=== PATIENT | male | born 1995 | race Caucasian/White ===

== ENCOUNTER 2025-07-23 09:55 | Outpatient (AMB) | payer BC, SELFPAY ==
--- NOTE | 2025-07-23 09:56 | A.OFFPC_ITS ---
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 albuterol sulfate 90 mcg/actuation 2 puffs inhalation Q6H PRN Tobacco use date assessed: 07/23/25 Dental Screening Dental Screen Date: 07/23/25 Did you have a dental visit in the last 12 months?: Yes Did you have a dental problem in the last 6 months where you did not have access to dental care?: No Was dental information given to patient?: Patient has dentist HPI HPI Comments History of Present Illness Details 29 y/o M with asthma, fhx diabetes (dad, 1/2 sister w/ Type 1) s/p wisdom teeth extraction Social: to Lashanda (also my patient), 1 cat; works at [employer] Fhx: as below Health Maintenance Flu declined 07/23/25 Tdap 07/23/25 Specialists None History of Present Illness The patient is a 29 year old individual presenting to establish care as a new patient and for asthma management & for CPE No records Asthma: - The patient has a history of asthma si nce childhood. - Symptoms are described as mild and occ ur about 2 or 3 days a week. - The patient uses an albuterol inhaler as needed for symptoms, which provides immediate relief. - The patient reports experiencing troub le breathing after sneezing, which sugg ests an allergic component to the asthma. Allergic Rhinitis: - The patient has been taking antihistam sammie like Zyrtec on and off since childhood for allergies. - The patient experiences episodes of sn eezing that trigger asthma symptoms. Health Maintenance: - The patient is establishing care and h as not been to a doctor's office in a long time. - The patient is due for a Tdap immuniza tion, having last received it a very long time ago. - The patient has not had a recent flu s hot. Declined - The patient declined blood work to [facility] for diabetes. Past Medical History - Asthma since childhood - Allergic rhinitis Past Surgical History - History of dental extractions Family History - Father: Type 2 diabetes - Maternal half-sister: Type 1 diabetes - Paternal grandmother: Breast cancer Social History - Marital status: - Living situation: Lives with and one cat. - Employment: Works at [employer]. Health Maintenance - A Tdap vaccine will be administered in the office today. - Provided instructions and information on how to sign up for the patient portal. - The patient declined a flu shot and di abetes screening at this visit. Review of Systems - Respiratory: Reports mild intermittent asthma symptoms approximately two to three times per week. - Reports dyspnea after episodes of snee zing. - Gastrointestinal: Reports normal bowel function. - Genitourinary: Reports normal urinary function. - Ophthalmologic: Denies vision problems or the use of glasses. - Integumentary: Denies any rashes, sore s, or open areas on the feet. - Musculoskeletal: Denies hip or back pa in. Physical Exam General: Well developed, well nourished, in no acute distress. Appears stated age. Head: Normocephalic, atraumatic. Eyes: Pupils are equal, round and reactive to light and accommodation. Conjunctivae are clear. Scleras nonicteric bilat. Vision grossly normal. Ears: TMs clear AU, EACS WNL Nose: Patent, without discharge. Neck: No carotid bruit bilat. Supple, no adenopathy or thyromegaly. Breast: Edu on SBE Lungs: Clear to auscultation bilaterally. No rales, rhonchi or wheeze noted. Good air flow in all abdul. Heart: Regular rate and rhythm. No murmurs, click, rubs or gallops are noted. Abdomen: Bowel sounds present in all quadrants. The abdomen is soft, nontender, with no masses or organomegaly noted. No hernias are noted. : Deferred. Reviewed FIDEL & recommendations Pulses: Peripheral pulses are equal and palpable bilaterally. Extremities: No clubbing, cyanosis nor edema is noted. Neurologic: Gait and station normal. Cranial Nerves 2-12 intact. Motor strength grossly symmetrical and intact. No sensory loss. Balance normal. Skin: No rashes, ulcers, or lesions noted. Turgor is good. Skin color is good. Hair and nails are without abnormalities. Psych: Normal eye contact, affect and mood appropriate, and normal interactions. Patient is alert and appropriate to context. Medical Decision Making The patient is a 29-year-old individual presenting for a new patient visit to establish care. The primary clinical issue is mild intermittent asthma, which appears well-controlled with an albuterol rescue inhaler. The patient's report of dyspnea after sneezing suggests an allergic component to the asthma, for which daily use of an oral antihistamine is a reasonable first-line approach. A refill of the albuterol inhaler will be provided. A daily controller inhaler is not indicated at this time but can be considered if symptoms persist or worsen despite the addition of an antihistamine. For health maintenance, a Tdap vaccine is recommended and was administered, as the patient was due and has asthma, which increases risks from pertussis. The patient has a family history of diabetes but declined screening today. Instructions were provided for patient portal enrollment to facilitate communication and access to health information. Plan 1. Mild Intermittent Asthma - A prescription for an albuterol inhale r will be sent to the pharmacy for as- needed use. - Recommended initiating a daily oral an tihistamine, such as wagz-nih-tzkidbl Zyrtec, to address the allergic component of the asthma. - A daily controller inhaler can be cons idered in the future if asthma symptoms persist or worsen despite this intervention. - Tdap admin today; declined Flu - RTO 6 mo for asthma re-eval. sooner pr n and CPE in 1 year. Patient Instructions - A prescription for an albuterol inhale r will be sent to the pharmacy at [facility] in [place]. - Begin taking an cdxo-clr-dkwnqbp daily antihistamine, such as Zyrtec (or a generic version), to help with allergy symptoms that can trigger your asthma. - If your asthma symptoms continue or ge t worse, please let us know as we may need to discuss a daily inhaler. - You will receive a Tdap (tetanus, diph theria, whooping cough) vaccine in the office today. This vaccine is effective for 10 years. - Please stop at the front line leader to get a printout with information on how to sign up for our patient portal. The activation link is only valid for 24 hours. Consent The importance of the Tdap vaccine was discussed with the patient, particularly the pertussis component, which is important for individuals with asthma. The patient was informed that the vaccine is considered a wellness vaccine and should be covered by insurance. The patient gave verbal consent to receive the Tdap vaccine during today's visit. Patient was informed and verbally consented to the use of an ambient scribe for clinic note documentation during this visit. An additional 15 minutes was spent addressing the problem(s) noted at todays visit. This includes time spent before the visit reviewing the chart, time spent during the visit, and time spent after the visit on documentation reviewing laboratory results, diagnostic imaging, medications, performing a medically necessary evaluation, counseling on diagnoses, care coordination, ordering appropriate tests, ordering appropriate medications, review of tests performed by other providers, reporting test results with the patient, communication with other healthcare providers. [facility] Medical History (Updated 07/23/25 @ 10:[address] 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 1. Little interest or pleasure in doing things: not at all 2. Feeling down, depressed, or hopeless: not at all 3. Trouble falling or staying asleep, or sleeping too much: not at all 4. Feeling tired or having little energy: several days 5. Poor appetite or overeating: not at all 6. Feeling bad about yourself - or that you are a failure or have let yourself or your family down: not at all 7. Trouble concentrating on things, such as reading the newspaper or watching television: not at all 8. Moving or speaking so slowly that other people could have noticed. Or the opposite - being so fidgety or restless that you have been moving around a lot more than usual: not at all 9. Thoughts that you would be better off or of hurting yourself in some way: not at all Total score: 1 Depression Screening Interpretation: Negative Depression Screening Done: Yes 25546 - PHQ-9 Billing: Yes Source: Developed by Drs. Gael Moore, Domenica Gong, Phil Avila and colleagues, with an educational faviola from [employer]. Thrive Questionnaire Date Thrive assessed: 07/23/25 I am a: Patient What is your living situation today?: I have a steady place to live Within the past 12 months, did the food you bought not last and you didn't have the money to get more?: Never true Within the past 12 months, did you worry whether your food would run out before you got money to buy more?: Never true Do you have trouble paying for medicines?: No Do you have trouble getting transportation to medical appointments?: No Do you have trouble paying your heating and electricity bill?: No Do you have trouble taking care of your child, family member or friend?: No Do you have trouble with day-to-day activities such as bathing, preparing meals, shopping, managing finances, etc.?: No Are you currently unemployed and looking for a job?: No Are you interested in more education?: I choose not to answer this question Please select the resources that you would like help with: None Currently or been in a relationship where the following occur: No concerns reported THRIVE Score: 0 AUDIT C Alcohol Use Questionnaire (AUDIT-C) 1. How often do you have a drink containing alcohol?: Monthly or less 2. How many drinks containing alcohol do you have on a typical day when you are drinking?: 1 or 2 3. How often do you have six or more drinks on one occasion?: Never Total Score: 1 Score Reviewed/Action Taken: Yes LEE-7 AMB Questionnaire LEE-7 Date LEE - 7 assessed: 07/23/25 Feeling nervous, anxious, or on edge: 0 = Not at all Not being able to stop or control worryin = Not at all Worrying too much about different things: 0 = Not at all Trouble relaxin = Not at all Being so restless that it is hard to sit still: 0 = Not at all Becoming easily annoyed or irritable: 0 = Not at all Feeling afraid as if something awful might happen: 0 = Not at all Total LEE-7 score (0-4 normal; 5-9 mild; 10-14 moderate; 15-21 severe): 0 Source: Developed by Drs. Gael Moore, Domenica Gong, Phil Avila and colleagues, with an educational faviola from [employer]. LEE-7 Assessment Billing LEE-7 Assessment Tool: LEE-7 Assessment 50741 ACT Questionnaire In the past 4 weeks, how much of the time did your asthma keep you from getting as much done at work, school or at home?: A little of the time During the past 4 weeks, how often have you had shortness of breath?: 1-2 times a week During the past 4 weeks, how often did your asthma symptoms wake you up at night or earlier than usual in the morning?: Not at all During the past 4 weeks, how often have you had to use your rescue inhaler or nebulizer medication?: 2-3 times a week How would you rate your asthma control during the past 4 weeks?: Somewhat controlled ACT Interpretation: Positive ACT Branch: Follow up visit scheduled Score: 19 Physical exam (Primary Care) Vital Signs: Last Vital Signs Temp 98.1 F 07/23/25 10:05 Pulse 73 07/23/25 10:05 Resp 16 07/23/25 10:05 BP 126/76 07/23/25 10:05 Pulse Ox 99 07/23/25 10:05 Oxygen Delivery Method Room Air 07/23/25 10:05 BMI result Body Mass Index 28.0 Tobacco/Smoking Status: Tobacco use Status Tobacco use date assessed 07/23/25 07/23/25 10:08 Patient Tobacco Use Status Never used Tobacco 07/23/25 10:08 e-Cigarette/Vaping Use Never Used 07/23/25 10:08 PHQ-9: PHQ-9 Score PHQ-9: Total score 1 07/23/25 10:15 Depression Screening Interpretation: Negative Thrive Assessment: Date of Thrive Assessment Date Thrive assessed 07/23/25 07/23/25 09:59 Currently or been in a relationship where the following occur: No concerns reported Coding Level of Care Code New Pt Level 2 (43893) New Pt Prev Care 18-39yr(92163 Diagnoses Encounter to establish care with new provider Z76.89 Influenza vaccination declined Z28.21 Need for Tdap vaccination Z23 Mild intermittent asthma in adult without complication J45.20 Family history of diabetes mellitus (DM) Z83.3 Encounter for general adult medical examination without abnormal findings Z00.00 Additional Codes LEE-7 Assessment Billing - LEE-7 Assessment Tool: LEE-7 Assessment 49496 ([id number]) PHQ-9 - 79192 - PHQ-9 Billing: Yes ([id number]) Asthma Control Questionnaire - ACT Interpretation: Positive ([id number]) Assessment & Plan Assessment & Plan (1) Encounter to establish care with new provider: Code(s): Z76.89 - Persons encountering health services in other specified circumstances Category: Medical (2) Influenza vaccination declined: Onset Date: ~07/23/25 Code(s): Z28.21 - Immunization not carried out because of patient refusal Category: Medical (3) Need for Tdap vaccination: Onset Date: ~07/23/25 Code(s): Z23 - Encounter for immunization Category: Medical (4) Mild intermittent asthma in adult without complication: Code(s): J45.20 - Mild intermittent asthma, uncomplicated Category: Medical (5) Family history of diabetes mellitus (DM): Code(s): Z83.3 - Family history of diabetes mellitus Category: Medical (6) Encounter for general adult medical examination without abnormal findings: Onset Date: ~07/23/25 Code(s): Z00.00 - Encounter for general adult medical examination without abnormal findings Category: Medical Plan , Medications: New albuterol sulfate 90 mcg/actuation 2 puffs inhalation Q6H PRN 6.7 grams 1RF dyspnea Patient Instructions: Walk-In Care (Urgent Care): We Make it Easy Walk-in for urgent medical issues such as: ? Seasonal Allergies ? Insect Bites ? Cough ? Diarrhea ? Acute Asthma Attacks ? Back, Knee or Joint Pain ? Ear Infection ? Fever without a Rash ? Headaches ? Nausea ? [place] [facility], Rash or Skin Irritation ? Sore Throat ? Sports Physicals ? Vomiting Most insurances are accepted. Patients do not need to be part of the [facility] to seek care at the walk-in clinic. Locations [address] [place] [address] [place] Open Tuesday through Tuesday 8am-5pm *Hours may vary due to staffing availability. To confirm Walk-In Care hours please call. [address] [facility] , [place] [address] ? [phone] [facility] in [place] provides services to ages 18 and over. Open Tuesday-Tuesday: 7 a.m. to 5 p.m. and Tuesday: 9 a.m. to 3 p.m.* *Hours may vary due to staffing availability. To confirm Walk-In Care hours in [place], please call [phone]. [address] [place] [id number] ? [phone] [facility] in [place] provides services to ages 12 and over. Open Tuesday-Tuesday: 8 a.m. to 5 p.m. Hours may vary due to staffing availability. To confirm Walk-In Care hours in [place], please call [phone]. LABORATORY SERVICES: [facility] ? Primary Location [address] [place] [address] Tuesday through Tuesday 6:00 AM ? 5:00 PM Tuesday 7:00 AM ? 11:00 AM* [phone] The [facility] is centrally located near the front entrance of the [facility] for easy outpatient access. Convenient parking is provided for outpatients. *Hours may vary due to staffing availability. To confirm Laboratory hours for any location, please call [phone]. Offsite Location For your convenience, we offer offsite laboratory draw stations at the following locations: [address] [place] [address] ? [address], [address] Tuesday through Tuesday 7:30 AM ? 1:00 PM* [phone] *Hours may vary due to staffing availability. To confirm Laboratory hours for any location, please call [phone]. [place] ? [address] Tuesday through Tuesday 6:00 AM ? 3:30 PM* Tuesday 6:30 AM ? 3 PM* [phone] *Hours may vary due to staffing availability. To confirm Laboratory hours for any location, please call [phone]. [address] [facility] Tuesday through Tuesday 7:30 AM ? 4:00 PM* [phone] *Hours may vary due to staffing availability. To confirm Laboratory hours for any location, please call [phone]. [address] [facility] Tuesday through 9:00 AM ? 4:00 PM* *Hours may vary due to staffing availability. To confirm Laboratory hours for any location, please call [phone]. Appointments are not necessary. Walk-ins are welcome. Like all the departments throughout the [facility], our Lab undergoes frequent reviews to ensure the quality and accuracy of test results, and our staff takes special pride in its status as a nationally accredited facility. Patient Portal: [facility] ONE PATIENT. ONE RECORD. BETTER CARE. [facility] has a fully integrated, cutting- edge mobile electronic health information system that has revolutionized the way we care for our patients and manage our organization. This system improves communication and coordination enabling us to provide safe, higher-quality care, and an overall positive experience for staff and patients. Our first priority, as always, is to deliver the highest quality care possible. The system is running in the background supporting that priority. This portal is for all [facility] services and practices. If you are experiencing any technical difficulties with enrolling or logging into the Patient Portal please complete the [facility] Patient Portal Technical Support Form. [facility] now offers a new secure on-line interactive tool for patients to review their health information ? ?Patient Portal. This interactive web portal will enable patients and their families to take an active role in their care by providing easy, secure access to their health information via the internet. The Patient Portal provides patients with instant access to their health information, including laboratory results, medications, allergies, demographic information, visit history, and more. In addition to managing their own care, parents and health care proxies with authorized consent will appreciate the ability to access the records of those individuals for whom they provide care. Please note: if you wish to gain access (Proxy) to another patient?s portal, you will be required to come to the Medical Records Department in person at [facility]. Both the patient giving proxy access and the proxy will need to provide photo identification and complete the appropriate authorization. The Patient Portal also allows track their appointments online. The [facility] Patient Portal also saves patients time by allowing them to submit updates to their demographic and contact information prior to their visits. Portal email notifications will also alert patients to any new activity on their portal, such as test results and new appointments. In order to initially enroll in the [facility] Patient Portal, you will need to enter some required information including the following: * your [facility] Medical Record number * your personal home email address * name * date of Please note: In order to enroll in the [facility] Patient Portal, we need to have your email address on file in your electronic medical record. ?The email address needs to be specific for one person (yourself) in order for your Portal enrollment to be successful. ?You can update your email address in person with our Registration staff when you are registering for a hospital visit. ?Otherwise, you will need to come to the Health Information Management (Medical Records) Department at [facility]. ?We are open from Tuesday ? Tuesday from 7:30 a.m. ? 4:30 p.m. ?You will be required to present a photo id. Once you have successfully enrolled in the Patient Portal, you will receive a one-time user id and password for the Portal, sent to your email address. ?This will allow you to log into the Patient Portal within 99 hrs and reset your own logon id and password, and define personal security questions. ?Once your permanent login and password have been set, you can log into the [facility] Patient Portal at any time via the blue button above or from the Portal Logon button on any page of the [facility] website. [facility] and [facility] encourage all of our patients to enroll in Patient Portal as it presents a valuable opportunity for patients and their families to actively participate in their care and stay healthy Welcome to [facility]. ?We look forward to working with you. Health screenings for men You should visit your health care provider regularly, even if you feel healthy. The purpose of these visits is to: Screen for medical issues Assess your risk for future medical problems Encourage a healthy lifestyle Update vaccinations and other preventive care services Help you get to know your provider in case of an illness Information Even if you feel fine, you should still see your provider for regular checkups. These visits can help you avoid problems in the future. For example, the only way to find out if you have high blood pressure is to have it checked regularly. High blood sugar and high cholesterol level also may not have any symptoms in the early stages. Simple blood tests can check for these conditions. There are specific times when you should see your provider or receive specific health screenings. The [place] Preventive Services Task Force publishes a list of recommended screenings. Below are screening guidelines for men ages 40 to 64. BLOOD PRESSURE SCREENING Have your blood pressure checked at least once every year. Watch for blood pressure screenings in your area. Ask your provider if you can stop in to have your blood pressure checked. Ask your provider if you need your blood pressure checked more often if: You have diabetes, heart disease, kidney problems, or are overweight or have certain other health conditions You have a first-degree relative with high blood pressure You are Black Your blood pressure top number is from 120 to 129 mm Hg, or the bottom number is from 70 to 79 mm Hg If the top number is 130 mm Hg or greater or the bottom number is 80 mm Hg or greater, this is considered stage 1 hypertension. Schedule an appointment with your provider to learn how you can lower your blood pressure. Effects of age on blood pressure CHOLESTEROL SCREENING Cholesterol screening should begin at age 35 for men with no known risk factors for coronary heart disease. Repeat cholesterol screening should take place: Every 5 years for men with normal cholesterol levels More often if changes occur in lifestyle (including weight gain and diet) More often if you have diabetes, heart disease, kidney problems, or certain other conditions COLORECTAL CANCER SCREENING If you are under age 45, talk to your provider about getting screened. You may need to be screened if you have a strong family history of colon cancer or polyps. Screening may also be considered if you have risk factors such as a history of inflammatory bowel disease or polyps. If you are age 45 to 75, you should be screened for colorectal cancer. There are several screening tests available: A stool-based fecal occult blood (gFOBT) or fecal immunochemical test (FIT) every year A stool sDNA test every 1 to 3 years Flexible sigmoidoscopy every 5 years or every 10 years with stool testing FIT done every year CT colonography (virtual colonoscopy) every 5 years Colonoscopy every 10 years You may need a colonoscopy more often if you have risk factors for colorectal cancer, such as: Ulcerative colitis A personal or family history of colorectal cancer A history of growths in your colon called adenomatous polyps DENTAL EXAM Go to the dentist once or twice every year for an exam and cleaning. Your dentist will evaluate if you have a need for more frequent visits. DIABETES SCREENING All adults who do not have risk factors for diabetes should be screened starting at age 35 and repeated every 3 years. If you have other risk factors for diabetes, such as a first degree relative with diabetes, overweight or obesity, high blood pressure, prediabetes, or a history of heart disease, you may be tested more often. If you are overweight and have other risk factors, such as high blood pressure and are planning to become , screening is recommended. EYE EXAM Have an eye exam every 2 to 4 years ages 40 to 54 and every 1 to 3 years ages 55 to 64. Your provider may recommend more frequent eye exams if you have vision problems or glaucoma risk. Have an eye exam that includes an examination of your retina (back of your eye) at least every year if you have diabetes. IMMUNIZATIONS Commonly needed vaccines include: Flu shot: get one every year COVID-19 vaccine: ask your provider what is best for you Tetanus-diphtheria and acellular pertussis (Tdap) vaccine: have as one of your tetanus-diphtheria vaccines if you did not receive it as an adolescent Tetanus-diphtheria: have a booster (or Tdap) every 10 years Varicella vaccine: receive 2 doses if you never had chickenpox or the varicella vaccine and were born in 1979 or after Hepatitis B vaccine: receive 2, 3, or 4 doses, depending on your exact circumstances, if you did not receive these as a child or adolescent, until age 59 Shingles (herpes zoster) vaccine: at or after age 50 Ask your provider if you should receive other immunizations, especially if you have certain medical conditions, such as diabetes or are at increased risk for some diseases such as pneumonia. INFECTIOUS DISEASE SCREENING Screening for hepatitis C: all adults ages 18 to 79 should get a one-time test for hepatitis C. Screening for human immunodeficiency virus (HIV): all people ages 15 to 65 should get a one-time test for HIV. Depending on your lifestyle and medical history, you may need to be screened for infections such as syphilis, chlamydia, and other infections. LUNG CANCER SCREENING You should have an annual screening for lung cancer with low-dose computed tomography (LDCT) if: You are age 50 to 80 years AND You have a 20 pack-year smoking history AND You currently smoke or have quit within the past 15 years OSTEOPOROSIS SCREENING If you are age 50 to 64 and have risk factors for osteoporosis, you should discuss screening with your provider. Risk factors can include long-term steroid use, low body weight, smoking, heavy alcohol use, having a fracture after age 50, or a family history of hip fracture or osteoporosis. Osteoporosis PHYSICAL EXAM All adults should visit their provider from time to time, even if they are healthy. The purpose of these visits is to: Screen for diseases Assess risk of future medical problems Encourage a healthy lifestyle Update vaccinations and other preventive care services Maintain a relationship with a provider in case of an illness Your height, weight, and body mass index (BMI) should be checked at every exam. During your exam, your provider may ask you about: Depression and anxiety Diet and exercise Alcohol and tobacco use Safety, such as use of seat belts and smoke detectors Your medicines and risk for interactions PROSTATE CANCER SCREENING If you're 55 through 69 years old, before having the test, talk to your provider about the pros and cons of having a PSA test. Ask about: Whether screening decreases your chance of dying from prostate cancer. Whether there is any harm from prostate cancer screening, such as side effects from testing or overtreatment of cancer when discovered. Whether you have a higher risk of prostate cancer than others. If you are age 55 or younger, screening is not generally recommended. You should talk with your provider about if you have a higher risk for prostate cancer. Risk factors include: Having a family history of prostate cancer (especially a brother or father) Being If you choose to be tested, the PSA blood test is repeated over time (yearly or less often), though the best frequency is not known. Prostate examinations are no longer routinely done on men with no symptoms. Prostate cancer SKIN EXAM Your provider may check your skin for signs of skin cancer, especially if you're at high risk. People at high risk include those who have had skin cancer before, have close relatives with skin cancer, or have a weakened immune system. TESTICULAR EXAM The [place] Preventive Services Task Force (USPSTF) now recommends against performing testicular self-exams. Doing testicular self-exams has been shown to have little to no benefit.
[2025-07-23 10:05] VITALS: BP 126/76; PULSE 73; RESP 16; TEMP 36.7; O2SAT 99; BMI 28.0
--- OUTSIDE RECORDS SUMMARY | 2025-07-23 11:05 | XMS_ITS | Data Portability ---
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 Declines referral for allergy evaluation. No symptoms of asthma at present. phelmuth Not available 12/05/2014 13:53:47 Plan of Treatment Reminders Order Date Submit Date Provider Last Modified By Organization Details Last Modified Time Details Appointments None record ed. Lab CMP, serum or plasma 2018 019 [id number] [facility], [address], [address] , [place], [address], 0 11:27:07 CBC w/ auto diff 2018 019 [id number] [facility], [address], [address], [place], [address], 0 11:27:07 vitami n D, 25-hyd arian, total, serum 2018 019 [id number] [facility], [address], [address] , [place], [address], 0 11:27:08 lipid panel, serum 2018 019 [id number] [facility], [address], [address], [place], [address], 0 11:27:08 TSH, serum or plasma 2018 019 [id number] [facility], [address], [address], [place], [address], 0 11:27:08 lipid panel, serum 2014 015 [email or web address] Not available 5 13:32:19 Referral sleep medici ne referr gus ramos sed apnea 2018 019 [facility], [address] [place], [address], 9 09:52:40 nutrit ionist /dieti kam referr al 2014 015 phelmuth Not available 5 18:01:33 Procedures None record ed. Surgeries None record ed. Imaging None record ed. Medication Orders Patano l 0.1 % eye drops 2014 015 [facility] [address], [address] [place], [address], 9 14:27:23 cetiri zine 10 mg tablet 2014 015 [facility] [address], [address] [place], [address], 9 14:31:20 Patient Targets Encounter Date Encounter Id Patient Goals Patient Target Last Modified By Organization Details Last Modified Time 11/23/2018 [id number] [facility] goal of Excess Body Weight Loss % 5 Not available Not available Not available 11/23/2018 [id number] Pt advised and agrees to work on self-monitoring behaviors; begin an appropriate diet for weight loss (such as a low carbohydrate diet), to do moderate exercise (such as walking) for approximately 150 minutes per week; and to identify desirable and timely rewards that will reinforce achievement of specific weight loss goals. pmadden Not available 11/23/2018 15:36:59 Patient Instructions Encounter Date Encounter Id Patient Instructions Last Modified By Organization Details Last Modified Time 12/05/2014 [id number] allergies: [facility] 12/08/2014 18:01:33 managing your allergies: care instructions phelmuth Not available 12/08/2014 18:01:33 When You Want to Lose Weight: [facility] available 12/08/2014 18:01:33 Nutrition Referral and Weight Management Follow-up Information ckrym Not available 12/11/2014 09:21:30 11/23/2018 [id number] psoriasis: care instructions pmadden Not available 11/23/2018 15:24:01 When You Want to Lose Weight: [facility] Not available 11/23/2018 15:24:01 Nutrition Referral and Weight Management [facility] Not available 11/23/2018 15:24:01 Medications (OTC , herbal therapies, supplements) reviewed and reconciled with patient and or caregiver, including potential side effects, drug interactions, instructions, and the consequences of not taking medication. Reviewed potential barriers to medication adherence, such as side effects from medication or cost of medication. [facility] Not available 11/23/2018 15:36:33 01/10/2019 [id number] snoring: [facility] Not available 01/10/2019 16:22:14 sleep apnea: car e instructions [facility] Not available 01/10/2019 16:22:14 Follow up if no improvement or if symptoms worsen. [facility] Not available 01/10/2019 16:22:52 Reason for Referral Vineyardist/dietitian Refer ral for Body mass index 25-29 - overweight Referring Physician: Gustavo Parks, Internal Medicine, Encounter Date: 12/05/2014 Sleep Medicine Referral for Snoring snoring and witnessed apnea Referring Physician: Jeff Kamara, Internal Medicine, Encounter Date: 01/10/2019 Results Created Date Observation Date Name Description Value Unit Range Abnormal Flag Note LastModifiedBy Organization Detail LastModifiedTime 04/10/20 19 04/06/2019 sleep study , diagn ostic * No observ ation record ed. [facility] [address] [place], [address], 04/10/2019 21:41:46 Result Notes None recorded. Problems Name Problem SNOMED Code Status Onset Date Resolution Date Notes Provider Name and Address Organization Details Recorded Time Body mass index 25-29 - overweig ht 784443620 Active Gustavo Parks MD [address], [place], [address] , [facility] 5 18:01:33 Allergic rhinitis 54065220 Active Gustavo Parks MD [address], [place], [address] , [facility] 5 18:01:33 Vernal conjunct ivitis 902546480 Completed 11/23/2018 Jeff Kamara PA-C [address] [facility] [address], [place], [address] , [facility] 9 15:08:58 Hyperlip idemia 36044718 Completed 11/23/2018 Jeff Kamara PA-C [address] [facility] [address], [place], [address] , [facility] 9 15:09:35 Adult health examinat ion Completed 201204/01/2014 RECORDED 07/11/20 13 9:55AM BY EMELINA MURPHY MA, ANNOTATI ON/ADDEN DUM Not Available [facility] 4 05:24:44 Anemia 523823625 Completed 201211/23/2018 Jeff Kamara PA-C [address] [facility] [address], [place], [address] , [facility] 9 15:09:40 Adult health examinat ion Completed 201203/05/2014 RECORDED 07/11/20 13 9:55AM BY EMELINA MURPHY MA, ANNOTATI ON/ADDEN DUM Not Available [facility] 4 14:07:27 Exercise -induced asthma 81350333 Active 2012 Kristine tracey, [facility] 9 14:27:39 Immuniza tion refused Completed 201211/23/2018 RECORDED 07/11/20 13 9:55AM BY EMELINA MURPHY MA, OFFICE VISIT Kristine tracey, [facility] 9 14:27:35 Patient status finding [id number] Completed 201211/23/2018 RECORDED 07/11/20 13 9:57AM BY EMELINA MURPHY MA, OFFICE VISIT Kristine tracey, [facility] 9 14:27:29 Partial thicknes s burn of hand 51038339 Completed 201211/23/2018 Jeff Kamara PA-C [address] [facility] [address], [facility] [place], [address] , [facility] 9 15:08:54 Overweig 800346931 Active 2018 Adele tracey [facility] 9 13:39:42 Problem Notes None recorded. Procedures Surgical History Date Name Laterality Status Provider Name and Address Organization Details Recorded Time No surg proc w/in 30 days completed Emelina Salinas MA [facility] 01/10/2019 15:45:41 Imaging Results None recorded. Procedure Notes None recorded. Medical Equipment None Reported. Allergies No known drug allergies Medications Name Sig Start Date Stop Date Status Note LastModified by Organization Details LastModified Time cetirizine 10 mg tablet Take 1 tablet every day by oral route. 11/23 completed Not Available Not Available Not Available Patanol 0.1 % eye drops INSTILL 1 DROP INTO AFFECTED EYE(S) BY OPHTHALMI C ROUTE 2 TIMES PER DAY 11/23 completed Not Available Not Available Not Available Medrol (Chris) 4 mg tablets in a dose pack Take doses by mouth per package instructi ons. 2019 active Not Available Not Available Not Avai lable prednisone 20 mg tablet active Not Available Not Available Not Available Vitals Date Recorded Body height Body mass index (BMI) Body weight Body temperature Oxygen saturation Heart rate Systolic And Diastolic Provider Name and Address Organization Details Last Updated DateTime 9 172.09 cm 28.6 kg/m2 93495.7 7 g 98.5 [degF] 96 % 91 /min 130/84 mm[Hg] Kristine Sarmiento [facility] 9 14:33:43 Date Recorded Body temperature Provider Name a nd Address Organization Details Last Updated DateTime 12/05/2014 99 [degF] Gustavo Parks MD [address], [place], [address], [facility] 12/05/2014 13:26:30 Date Recorded Oxygen saturation Body weight Heart rate Body mass index (BMI) Body height Systolic And Diastolic Provider Name and Address Organization Details Last Updated DateTime 5 97 % 50950.5 8845 g 96 /min 28.3 kg/m2 172.085 cm 122/82 mm[Hg] Emelina lock [facility] 5 13:20:09 Date Recorded Body height Body temperature Oxygen saturation Heart rate Body mass index (BMI) Body weight Systolic And Diastolic Provider Name and Address Organization Details Last Updated DateTime 9 172.09 cm 98.5 [degF] 97 % 71 /min 28.6 kg/m2 00785.7 7 g 128/66 mm[Hg] Emelina lock MA [facility] 9 15:51:26 Social History Question Answer Notes LastModified by Organizat ion Details LastModified Time Tobacco Smoking Status [facility]2018 14:31:59 Do You Have An Advance Directive? Yes Signed 12/05/14 Information not available 12/05/2014 Is Blood Transfusion Acceptable In An Emergency? Yes Information not available 11/23/2018 What Is Your Level Of Caffeine Consumption? Moderate Soda; 1+ Cans Daily Information not available 12/05/2014 How Much Tobacco Do You Chew? None Information not available 01/10/2019 What Type Of Diet Are You Following? REGULAR Information not available 12/05/2014 Live Alone Or With Others? With Others Parents Information not available 12/05/2014 Do You Take Precautions To Prevent Distracted Driving? Yes Information not available 11/23/2018 How Often Do You Need To Have Someone Help You When You Read Instructions, Pamphlets, Or Other Written Material From Your Doctor Or Pharmacy? Never Information not available 11/23/2018 Have You Served In The ? Yes Information not available 11/23/2018 What Was The Date Of Your Most Recent Tobacco Screening? 01/10/2019 Information not available 03/15/2019 How Many Children Do You Have? 0 Information not available 12/05/2014 Do You Use Protection During Sex? Always Information not available 01/10/2019 Seat Belts Used Routinely Yes Information not available 11/23/2018 Are You Sexually Active? Yes Information not available 11/23/2018 Smoke Alarm In Home Yes Information not available 11/23/2018 At What Age Did You Start Smoking Tobacco? 0 Information not available 01/10/2019 Are You Passively Exposed To Smoke? No Information not available 11/23/2018 How Much Tobacco Do You Smoke? No Information not available 12/05/2014 Do You Use Sunscreen Routinely? Yes Information not available 11/23/2018 How Many Years Have You Smoked Tobacco? 0 Information not available 01/10/2019 Sex: Unknown Functional Status Question Answer Note LastModified by Organizat ion Details LastModified Time What is your level of alcohol consumption? Occasional very rarely Information not available 12/05/2014 Are you currently employed? Yes Information not available 12/05/2014 Are you able to care for yourself independently ? 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 Never used electronic cigarettes Information not available 01/10/2019 What is your exercise level? None Information not available 12/05/2014 Mental Status None recorded. Family History Relationship Description Onset Age of this Age Resolved Age Notes LastModified by Organization Details LastModified Time Paternal Grandfather Diabetes mellitus [facility] Not available 2014 13:34:42 Mother Diabetes mellitus [facility] Not [facility] 2014 13:34:42 Sister Diabetes mellitus half sister phelmuth Not available 12/05/2014 13:34:42 Medical History Condition Response Gout N Other N Kidney Stones N Blood Diseases N Hyperthyroidism N Breast Cancer N Hypothyroidism N Lung Disease N Depression N COPD N Defects or Inherited Disease N Anesthesia Complications N Headaches/Migraines N Anxiety Disorder N Varicose Veins N Obesity N Vision or Eye Problems N Arthritis N Head Injury/Concussion N Infertility N Polyps N Congenital Anomalies N Acid Reflux (GERD) N Cancer N Stroke N ADHD N Endometriosis N High Cholesterol N Liver Disease N Fibromyalgia N Kidney Disease N Heart Problems N Ear or Hearing Problems N Hospitalizations N Thyroid Problems N GI Problems N Acne N Eating Disorder N Skin Problems N Anemia N Constipation N Bladder Problems N Mental Illness N Diabetes N Ovarian Cancer N Blood Transfusions N Seizures/Epilepsy N Tuberculosis N AIDS/HIV N Congestive Heart Failure (CHF) N Eczema N Abuse/Domestic Violence N Diverticulitis N Asthma N Allergies N Reflux/GERD N Hepatitis N Pulmonary Embolism N Hypertension N Chicken Pox N Autism Spectrum Disorder (ASD) N Osteoporosis N Immunizations Vaccine Type Date Status Note Provider Nam e and Address Organization Details Recorded Time [facility] 4 completed [facility] Available [facility] 03/05/2014 13:50:36 DTaP 4 completed Not Available [facility] 03/05/2014 13:50:36 DTaP 4 completed Not Available [facility] 03/05/2014 13:50:36 DTaP 5 completed Not Available [facility] 03/05/2014 13:50:36 DTaP 8 completed Not Available [facility] 03/05/2014 13:50:36 MMR 5 completed Not Available [facility] 03/05/2014 13:50:36 MMR 8 completed Not Available [facility] 03/05/2014 13:50:36 IPV 4 completed Not Available [facility] 03/05/2014 13:50:36 IPV 4 completed Not Available [place]/05/2014 13:50:36 IPV 5 completed Not Available [facility]/05/2014 13:50:36 IPV 8 completed Not Available [facility] 03/05/2014 13:50:36 Hep B, adult 3 completed Not Available [facility] 03/05/2014 13:50:36 Hep B, adult 4 completed Not Available [facility] 03/05/2014 13:50:36 Hep B, adult 4 completed Not Available [facility] 03/05/2014 13:50:36 Tdap 0 completed Not Available [facility] 03/05/2014 13:50:36 Td (adult), 2 Lf tetanus toxoid, preservative free, adsorbed 4 completed Not Available [facility] 03/05/2014 13:50:36 meningococcal MPSV4 7 completed Not Available [facility] 03/05/2014 13:50:36 meningococcal MPSV4 2 completed Not Available [facility] 03/05/2014 13:50:36 Hib (HbOC) 4 completed Not Available [facility] 03/05/2014 13:50:37 Hib (HbOC) 4 completed Not Available [facility] 03/05/2014 13:50:37 Hib (HbOC) 4 completed Not Available [facility] 03/05/2014 13:50:37 Hib (HbOC) 5 completed Not Available [facility] 03/05/2014 13:50:37 Past Encounters Encounter ID Performer Location Encounter Start Date Encounter Closed Date Diagnosis/Indication Diagnosis SNOMED-CT Code Diagnosis ICD10 Code Diagnosis IMO Codes Diagnosis Note [id number] autoEComm erce [address] [facility] [place] [address] 04/20/2013 00:00:00 [id number] autoEComm erce [address] [facility] [place] [address] 07/11/2013 00:00:00 [id number] Gustavo Parks MD Main Office [address] [facility]] [address] [place] [address] 12/05/2014 13:02:42 12/05/2014 13:59:59 Adult health examination 231201335 Body mass index 25-29 - overweight 409912402 Allergic rhinitis 03922576 Vernal conjunctivitis 525987109 Hyperlipidemia 44618457 [id number] Chris Fox MD Main Office [address] [facility]] [address] [place] [address] 11/23/2018 14:24:47 11/23/2018 15:30:55 Adult health examination 716574940 Z00.00 Exercise-i nduced asthma 87579641 J45.990 rare use of proair (has Dad's inhaler) Allergic rhinitis 609744 04 J30.9 consider claritin, cont otc eye drops prn Body mass index 25-29 - overweight 919356543 Z68.28 Psoriasis 7334462 L40.9 on B knees / lateral aspect of feet/ankle s - pt declined rx steroid cream - rec trial chin-10 bid x 1wk (can use intermitte ntly thereafter , but not continuous ly), then use moisturizi ng lotion 1-2x/day ------ 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 Overweight 589572328 E66 .3 [id number] Chris Fox MD Main Office [address] [facility] [place] [address] 01/10/2019 15:38:25 01/10/2019 16:20:47 Snoring 38332940 R06.83 and witnessed apnea - will get sleep medicine eval Health Concerns Section Related Observation LastModified by Organization Detai ls LastModified Time None Recorded Concern Status LastModified by Organization Details LastModified Time None Recorded Advance Directives Directive Y: signed 12/05/14 Payers Insurance Date Sequence Insurance Name Policy Number Policy Nj Covered Member ID Nj Member ID Guarantor Name 11/30/[address] [place] [address] [id number] Herbert Villela [id number] Herbert Villela Notes Date Note Type Note Provider Name and Address Organization Details Recorded Time 12/05/2014 text/html Here for PE visit. No urgent concerns. Discussed problems with nasal congestion and eye itching consistent with longstanding problems with allergy. 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 Patient states he feels tired after work and takes naps after work (approximately 1 hour). typically sleeps 11pm-4:30 am, works 5am-1:30pm + fh abraham - father Jeff Kamara HAIM [address] [facility] [address], [place], [address], [facility] 01/10/2019 16:23:12
--- OUTSIDE RECORDS SUMMARY | 2025-07-23 11:05 | XMS_ITS | Clinical Summary ---
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 2 capsule 01/13/2021 Active Active Problems Problem Noted Date Diagnosed Date Allergic rhinitis 01/13/2021 Overweight with body mass index (BMI) 25.0-29.9 01/13/2021 Exercise-induced asthma 07/11/2013 Social History Tobacco Use Types Packs/Day Years Used Date Smoking Tobacco: Never Smokeless Tobacco: Never Education Answer Date Recorded Are you interested in more education? Not on robert e 12/18/2022 Are you concerned about learning? Not on file 12/18/2022 No 12/18/2022 No 12/18/2022 Digital Access Answer Date Recorded No 01/15/2023 No 01/15/2023 No 01/15/2023 Reliable internet access at home? Not on file 01/15/2023 Device with a working camera? Not on file Sex and Gender Information Value Date Recorded Sex Assigned at Not on file Legal Sex Male 3:17 PM EDT Gender Identity Not on file Sexual Orientation Not on file Last Filed Vital Signs Vital Sign Reading Time Taken Comments Blood Pressure 133/86 01/13/2021 3:42 PM EDT Pulse 73 01/13/2021 3:42 PM EDT Temperature 36.7 C (98 F) 01/13/2021 3:42 PM EDT Respiratory Rate 18 01/13/2021 3:42 PM EDT Oxygen Saturation 98% 01/13/2021 3:42 PM EDT Inhaled Oxygen Concentration - - Weight 86.6 kg (191 lb) 01/13/2021 3:42 PM EDT Height 170.2 cm (5' 7 ) 01/13/2021 3:42 PM EDT Body Mass Index 29.91 01/13/2021 3:42 PM EDT Plan of Treatment Health Maintenance Due Date Last Done Comments DEPRESSION SCREENING 2005 HEPATITIS C SCREENING 2011 HIV ONE-TIME SCREENING (18-65 YEARS) 2011 PNEUMOCOCCAL VACCINES (0-49 years) (1 of 2 - PCV) 2012 Adult Td,Tdap Booster 07/28/2020 07/28/2010, 004 INFLUENZA VACCINE (#1) 2025 COVID-19 VACCINE ( season) 2025 12/12/2020, 11/14/2020 HIB VACCINES Completed 11/17/1994, 01/22, 1993, Additional history exists MENINGOCOCCAL VACCINES (ACWY) Aged Out 09/30/2011, 07/18/2007 No longer eligibl e based on patient's age to complete this topic SMOKING STATUS SCREENING (Once After 26 Yrs) Completed 01/13/2021 HEPATITIS A VACCINES Aged Out No long er eligible based on patient's age to complete this topic MENINGOCOCCAL VACCINES (B) Aged Out N o longer eligible based on patient's age to complete this topic Medical Devices Not on file Insurance [facility] OUT OF STATE PPO BLUE CROSS OUT OF STATE PPO BLUE CROSS OUT OF STATE PPO BLUE CROSS OUT OF [facility] PPO BLUE CROSS OUT OF STATE PPO BLUE CROSS OUT OF STATE PPO [employer]UE [employer]OSS OUT OF STATE PPO BLUE [employer]OSS OUT OF STATE PPO [facility] OUT STATE PPO Care Teams Sheet Metal Welder Relationship Specialty Start Date End Date Unknown, Unknown, PCP - General 01/13/21 Additional Source Comments The information contained in this document represents components of the legal health record. It is not the complete legal health record.[facility]
== END 2025-07-23 10:50 | disposition home or self-care (01) ==
LOC: HO.HMCFM 09:55
PROVIDERS: PCP Nurse Practitioner Family; Visit Provider Nurse Practitioner Family
DX: Z00.00 Encounter for general adult medical examination without abnormal findings (principal); J45.20 Mild intermittent asthma, uncomplicated; Z23 Encounter for immunization; Z83.3 Family history of diabetes mellitus

== ENCOUNTER → 2025-07-23 09:55 | Outpatient (BNVA) | payer BC, SELFPAY | PROVIDERS: PCP Nurse Practitioner Family; Visit Provider Nurse Practitioner Family | DX: Z00.00 Encounter for general adult medical examination without abnormal findings (principal); Z23 Encounter for immunization; Z28.29 Immunization not carried out because of patient decision for other reason; J45.20 Mild intermittent asthma, uncomplicated; Z79.899 Other long term (current) drug therapy; Z83.3 Family history of diabetes mellitus | CPT/HCPCS: 90471; 90715; 96127; 96160 ==